=== PATIENT | female | born 1960 ===

== ENCOUNTER 2017-04-09 17:38 | Emergency (ER) | payer MEDICAID ==
[2017-04-09 17:51] VITALS: BP 134/90; PULSE 98; RESP 16; TEMP 98.2; O2SAT 97
[2017-04-09] MEDS ORDERED: Sodium Chloride 0.9% 1,000 ML IV ONE (19:35)
[2017-04-09] MEDS ORDERED: Albuterol 0.083% Inhal Sol (2.5 mg/3 mL) UD IH STA (19:36)
--- NOTE | 2017-04-09 19:44 | C.PDOC ---
History Of Present Illness 56 yo female w/o significant PMHx come in for evaluation of fever, bodyaches, dry cough gradualy developed since yesterday. Otherwise, pt denies severe headache, dizziness, drooling, dysphagia, dyspnea, SOB, wheezing, abd. pain, diarrhea, change in appetite, food intolerance, UTI sx. Ambulate to Ed for evaluation, not in any apparent distress. Time Seen by Provider: 04/09/17 19:14 Chief Complaint (Nursing): Flu-like Symptoms History Per: Patient, Family Onset/Duration Of Symptoms: Gradual Past Medical History Reviewed: Historical Data, Nursing Documentation, Vital Signs Vital Signs: Last Vital Signs Temp 98.2 F 04/09/17 17:45 Pulse 98 H 04/09/17 17:45 Resp 16 04/09/17 17:45 BP 134/90 04/09/17 17:45 Pulse Ox 97 04/09/17 20:00 - Medical History PMH: Anxiety, Depression Family History: States: Unknown Family Hx - Social History Hx Tobacco Use: No Hx Alcohol Use: No Hx Substance Use: No - Immunization History Hx Tetanus Toxoid Vaccination: No Hx Influenza Vaccination: No Hx Pneumococcal Vaccination: No Review Of Systems Except As Marked, All Systems Reviewed And Found Negative. Constitutional: Positive for: Fever, Chills, Malaise ENT: Positive for: Nose Discharge, Nose Congestion, Throat Pain. Negative for: Ear Discharge Respiratory: Positive for: Cough. Negative for: Shortness of Breath, Wheezing Gastrointestinal: Negative for: Nausea, Vomiting, Abdominal Pain, Diarrhea Genitourinary: Negative for: Dysuria, Frequency Musculoskeletal: Negative for: Neck Pain, Back Pain Skin: Negative for: Rash Neurological: Negative for: Weakness, Numbness, Altered Mental Status, Dizziness Physical Exam - Physical Exam Appears: Well, Non-toxic, No Acute Distress Skin: Normal Color, Warm, Dry, No Rash Head: Normacephalic Eye(s): bilateral: PERRL Nose: No Flaring, Discharge (scant clear) Oral Mucosa: Moist, No Drooling Tongue: Normal Appearing Throat: No Erythema, No Drooling Neck: Trachea Midline, Supple Cardiovascular: Rhythm Regular, No Murmur, No JVD Respiratory: No Decreased Breath Sounds, No Accessory Muscle Use, No Stridor, No Wheezing Gastrointestinal/Abdominal: Soft, No Tenderness, No Distention, No Guarding Back: No CVA Tenderness Extremity: Normal ROM, No Deformity, No Swelling Neurological/Psych: Oriented x3, Normal Speech ED Course And Treatment O2 Sat by Pulse Oximetry: 97 Pulse Ox Interpretation: Normal - Radiology CXR: Interpreted by Me, Viewed By Me CXR Interpretation: Yes: No Acute Disease Progress Note: P refused blood work at present time, request oral medictaion only. On re-evaluation, pt is afebrile, hemodynamicaly stable. Non-toxic. Tolerate Po well in Ed. PusleOx 97% RA. Neck: Supple, (-) meningeal sign, (-) JVD. ENT: no acute findings. Lungs: CTA B/L, BS equal B/L. CVS: (+)S1S2, reg. Abd: enign, (-) guarding, (-) rebound. back: (-) CVA tenderness. CXR review and appears normal. Pt has clinical findings c/w Influenza-like illness. Pt advised. ref. to f/u with PMD in 2-3 days for re-eval. return to ED if any worsening or new changes. Disposition Counseled Patient/Family Regarding: Studies Performed, Diagnosis, Need For Followup, Rx Given - Disposition Referrals: Shaik Toribio MD [Staff Provider] - Disposition: HOME/ ROUTINE Disposition Time: 20:00 Condition: STABLE Additional Instructions: ENCOURAGE FLUIDS TAKE MEDICATION PRESCRIBED FOLLOW UP WITH PMD IN 2-3 DAYS FOR RE-EVALUATION. RETURN TO ED IF ANY WORSENING OR NEW CHANGES. Prescriptions: Azithromycin [Zithromax] 250 mg PO DAILY #4 tab Benzonatate [Tessalon Perle] 100 mg PO TID #14 capsule Oseltamivir Phosphate [Tamiflu] 75 mg PO BID #10 capsule Instructions: Influenza (ED) Forms: eTipping (Latvian) Print Language: SAMMARINESE - Clinical Impression Clinical Impression: Influenza-like illness
[2017-04-09] MEDS ORDERED: Albuterol 0.083% Inhal Sol (2.5 mg/3 mL) UD ONE (19:55)
--- NOTE | 2017-04-10 13:18 | RAD ---
HISTORY: SOB COMPARISON: No prior. TECHNIQUE: Chest PA and lateral FINDINGS: LUNGS: No active pulmonary disease. PLEURA: No significant pleural effusion identified. No pneumothorax apparent. CARDIOVASCULAR: Normal. OSSEOUS STRUCTURES: Mild degenerative changes. VISUALIZED UPPER ABDOMEN: Normal. OTHER FINDINGS: None. IMPRESSION: No active disease.
== END 2017-04-09 20:30 | disposition home or self-care (01) ==
LOC: C.ER 17:38
DX: J11.1 Influenza due to unidentified influenza virus with other respiratory manifestations (principal)